=== PATIENT | female | born 1930 | race Caucasian/White ===

== ENCOUNTER 2017-05-10 17:14 | Inpatient (IN) | payer OTHER ==
[~2017-05-10] VITALS: Ht 162.6 cm; Wt 77.2 kg
[2017-05-10] MEDS ORDERED: NIFEDICAL XL30 MG PO (18:00)
[2017-05-10] MEDS ORDERED: PAROXETINE40 M1 PO (18:01)
[2017-05-10] MEDS ORDERED: CLONAZEPAM1 MG PO (18:02)
[2017-05-10] MEDS ORDERED: PROTONIX40 MG PO (18:02)
[2017-05-10] MEDS ORDERED: DONEPEZIL HCL10 MG PO (18:03)
[2017-05-10] MEDS ORDERED: LEVOTHYROXINE0.1 M2 PO (18:03)
[2017-05-10] MEDS ORDERED: LOSARTAN POTASS50 M1 PO (18:03)
[2017-05-10] MEDS ORDERED: FENOFIBRATE160 M1 PO (18:03)
[2017-05-10] MEDS ORDERED: CYCLOBENZAPRINE5 MG PO (18:03)
[2017-05-10] MEDS ORDERED: NORCO1 TA2 PO (18:04)
[2017-05-10] MEDS ORDERED: FERROUS SULFAT325 M2 PO (18:04)
[2017-05-10 18:34] LABS: BASOPHIL % 0.4 % (0-2); PLATELET COUNT 388 x10^3mcL (130-400); RED CELL DISTRIBUTION WIDTH 14.3 % (11.5-14.5)
[2017-05-10 18:40] LABS: CALCIUM 9.2 mg/dL (8.5-10.1); CARBON DIOXIDE 21.3 mmol/L (21-32); CHLORIDE SERUM 107 mmol/L (98-107); CREATININE SERUM 1.2 mg/dL (0.6-1.0); GLUCOSE SERUM 111 mg/dL (74-106); POTASSIUM SERUM 3.9 mmol/L (3.5-5.1); SODIUM SERUM 141 mmol/L (136-145)
[2017-05-10 18:44] LABS: ALBUMIN 3.8 g/dL (3.4-5.0); ALKALINE PHOSPHATASE 37 U/L (46-116); ALT/SGPT 30 U/L (14-59); AST/SGOT 21 U/L (15-37); BILIRUBIN TOTAL 0.58 mg/dL (0.20-1.00); TOTAL PROTEIN, SERUM 7.4 g/dL (6.4-8.2)
[2017-05-10 19:16] LABS: UA SPECIFIC GRAVITY <=1.005 (1.005-1.035); microscopic required? YES; urine erythrocyte NEGATIVE (NEGATIVE)
[2017-05-10 19:52] VITALS: BP 140/60
[2017-05-10 20:10] LABS: MAGNESIUM 2.1 mg/dL (1.8-2.4); PHOSPHOROUS 2.6 mg/dL (2.5-4.9)
[2017-05-10 20:19] LABS: CHOLESTEROL/HDL RATIO 2.4
[2017-05-10 20:25] LABS: FREE T4 1.47 ng/dL (0.76-1.46); FREE THYROXINE INDEX 4.3 ug/dL (1.4-4.5)
[2017-05-10 21:04] VITALS: BP 140/60
[2017-05-11 03:24] LABS: T3 TOTAL 0.49 ng/mL
[2017-05-11 05:05] VITALS: BP 119/54
[2017-05-11 06:48] LABS: BASOPHIL % 0.6 % (0-2); PLATELET COUNT 319 x10^3mcL (130-400); RED CELL DISTRIBUTION WIDTH 14.3 % (11.5-14.5)
[2017-05-11 07:07] LABS: CALCIUM 8.2 mg/dL (8.5-10.1); CARBON DIOXIDE 23.3 mmol/L (21-32); CHLORIDE SERUM 109 mmol/L (98-107); CREATININE SERUM 1.2 mg/dL (0.6-1.0); GLUCOSE SERUM 104 mg/dL (74-106); MAGNESIUM 2.1 mg/dL (1.8-2.4); PHOSPHOROUS 3.1 mg/dL (2.5-4.9); POTASSIUM SERUM 4.1 mmol/L (3.5-5.1); SODIUM SERUM 142 mmol/L (136-145)
[2017-05-11 08:59] VITALS: BP 144/64
[2017-05-11 13:50] VITALS: BP 136/52
[2017-05-11 18:00] VITALS: BP 125/46
[2017-05-11 20:55] VITALS: BP 130/55
[2017-05-11 21:29] VITALS: BP 112/64
[2017-05-12 05:55] VITALS: BP 116/44
[2017-05-12 07:39] LABS: CALCIUM 8.4 mg/dL (8.5-10.1); CARBON DIOXIDE 22.9 mmol/L (21-32); CHLORIDE SERUM 113 mmol/L (98-107); CREATININE SERUM 1.1 mg/dL (0.6-1.0); GLUCOSE SERUM 101 mg/dL (74-106); SODIUM SERUM 144 mmol/L (136-145)
[2017-05-12 07:51] LABS: BASOPHIL % 0.7 % (0-2); PLATELET COUNT 310 x10^3mcL (130-400); RED CELL DISTRIBUTION WIDTH 14.1 % (11.5-14.5)
[2017-05-12] MEDS ORDERED: FLA500 PO (09:30)
[2017-05-12] MEDS ORDERED: LEVAQUIN750 MG PO (09:30)
[2017-05-12] MEDS ORDERED: BD LACTINEX1.4 MG PO (09:30)
[2017-05-12] MEDS ORDERED: COLACE100 MG PO (09:46)
[2017-05-12] MEDS ORDERED: APAP/HYDROCODON1 T13 PO (09:46)
[2017-05-12 09:48] VITALS: BP 116/44
[2017-05-12 09:59] VITALS: BP 139/61
== END 2017-05-12 14:31 | disposition home or self-care (01) | DRG 392 ==
LOC: ED 17:14 → DU 18:50
PROVIDERS: Emergency Medicine; Family Medicine Sports Medicine
DX: K57.32 Diverticulitis of large intestine without perforation or abscess without bleeding (principal); N39.0 Urinary tract infection, site not specified; I10 Essential (primary) hypertension; R73.03 Prediabetes; E83.51 Hypocalcemia; E78.5 Hyperlipidemia, unspecified; E03.9 Hypothyroidism, unspecified; E66.3 Overweight; Z68.29 Body mass index [BMI] 29.0-29.9, adult; Z98.1 Arthrodesis status; Z79.891 Long term (current) use of opiate analgesic
CPT/HCPCS: 83880; 84439; J0696; J1885; J1956; J2405; J3010; J3490; J7030; Q0092

== ENCOUNTER 2019-05-15 12:12 | Emergency (ER) | payer OTHER ==
[~2019-05-15] VITALS: Ht 147.3 cm; Wt 68.2 kg
[~2019-05-15 12:12] MED LIST: APAP/HYDROCODON1 T13 PO; BD LACTINEX1.4 MG PO; CLONAZEPAM1 MG PO; COLACE100 MG PO; CYCLOBENZAPRINE5 MG PO; DONEPEZIL HCL10 MG PO; FENOFIBRATE160 M1 PO; FERROUS SULFAT325 M2 PO; FLA500 PO; LEVAQUIN750 MG PO; LEVOTHYROXINE0.1 M2 PO; LOSARTAN POTASS50 M1 PO; NIFEDICAL XL30 MG PO; NORCO1 TA2 PO; PAROXETINE40 M1 PO; PROTONIX40 MG PO
[2019-05-15 13:03] VITALS: Ht 147.3 cm; Wt 68.2 kg
[2019-05-15 15:43] VITALS: BP 116/61
== END 2019-05-15 15:43 | disposition home or self-care (01) ==
LOC: ED 12:12
DX: J18.9 Pneumonia, unspecified organism (principal); I10 Essential (primary) hypertension; Z90.49 Acquired absence of other specified parts of digestive tract; Z90.89 Acquired absence of other organs; Z90.710 Acquired absence of both cervix and uterus
CPT/HCPCS: J1885

== ENCOUNTER 2019-06-14 17:48 | Emergency (ER) | payer OTHER ==
[~2019-06-14] VITALS: Ht 162.6 cm; Wt 72.6 kg
[2019-06-14 18:00] VITALS: Ht 162.6 cm; Wt 72.6 kg
[2019-06-14 21:38] LABS: PLATELET COUNT 416 x10^3mcL (130-400)
[2019-06-14 21:53] LABS: BAND NEUTROPHIL 1 % (0-10); BASOPHIL 1 % (0-2); MONOCYTE 5 % (0-7); PLATELET MORPHOLOGY PLATELETS NORMAL; SEGMENTED NEUTROPHILS 40 % (37-75); rbc morphology (normal/abnorm) NORMAL (NORMAL)
[2019-06-14 21:56] LABS: CALCIUM 10.4 mg/dL (8.5-10.1); CARBON DIOXIDE 22.5 mmol/L (21-32); CHLORIDE SERUM 108 mmol/L (98-107); CREATININE SERUM 1.1 mg/dL (0.6-1.0); GLUCOSE SERUM 101 mg/dL (74-106); POTASSIUM SERUM 4.3 mmol/L (3.5-5.1); SODIUM SERUM 141 mmol/L (136-145)
[2019-06-15 00:29] VITALS: BP 143/89
== END 2019-06-15 00:29 | disposition home or self-care (01) ==
LOC: ED 17:48
PROVIDERS: Emergency Medicine
DX: I82.402 Acute embolism and thrombosis of unspecified deep veins of left lower extremity (principal); I10 Essential (primary) hypertension; E78.00 Pure hypercholesterolemia, unspecified; Z90.49 Acquired absence of other specified parts of digestive tract; Z90.89 Acquired absence of other organs
CPT/HCPCS: 36415; Q0092

== ENCOUNTER 2019-11-16 07:27 | Observation (INO) | payer OTHER ==
[~2019-11-16] VITALS: Ht 162.6 cm; Wt 66.9 kg
[2019-11-16 07:40] VITALS: Ht 162.6 cm; Wt 66.9 kg
--- NOTE | 2019-11-16 08:00 | NUR ---
PT BIB SELF C/O NAUSEA AND DECREASED APPETITE X2 WEEKS. DENIES ANY NAUSE. PT IS AAOX4, NO DISTRESS NOTED, RESP E/U SKIN INTACT PINK WARM AND DRY. PT GOWNED AND PLACED ON FULL CM, NSR, NOTED. AWAITING MSE BY .
[2019-11-16 08:34] LABS: microscopic required? NO
--- NOTE | 2019-11-16 08:46 | NUR ---
PT RETURNED TO ER FLOOR VIA GURNEY FORM CT. NO DISTRESS NOTED
[2019-11-16 08:50] LABS: BASOPHIL % 0.9 % (0-2)
[2019-11-16 08:55] LABS: UA SPECIFIC GRAVITY 1.025 (1.005-1.035); urine erythrocyte NEGATIVE (NEGATIVE)
[2019-11-16 08:56] LABS: PLATELET COUNT 482 x10^3mcL (130-400)
--- NOTE | 2019-11-16 08:58 | NUR ---
XRAY AT THE BEDSIDE.
[2019-11-16 09:08] LABS: CALCIUM 8.8 mg/dL (8.5-10.1); CARBON DIOXIDE 21.8 mmol/L (21-32); CHLORIDE SERUM 106 mmol/L (98-107); CREATININE SERUM 1.2 mg/dL (0.6-1.0); GLUCOSE SERUM 117 mg/dL (74-106); POTASSIUM SERUM 4.1 mmol/L (3.5-5.1); SODIUM SERUM 140 mmol/L (136-145)
[2019-11-16 09:13] LABS: ALBUMIN 3.6 g/dL (3.4-5.0); ALKALINE PHOSPHATASE 36 U/L (46-116); ALT/SGPT 20 U/L (14-59); AST/SGOT 16 U/L (15-37); BILIRUBIN TOTAL 0.4 mg/dL (0.20-1.00); LIPASE 82 IU/L (73-393)
--- NOTE | 2019-11-16 09:54 | NUR ---
DR DICKERSON AT THE BEDSIDE DISCUSSING PLAN OF CARE
--- NOTE | 2019-11-16 10:20 | NUR ---
PT C/O GENERALIZED HEADACHE AND REPORTED "I STILL FEEL NAUSEA." MADE AWARE.
[2019-11-16] MEDS ORDERED: TRIGLIDE160 M1 PO (10:33)
[2019-11-16] MEDS ORDERED: LEVO-T75 MCG PO (10:33)
[2019-11-16] MEDS ORDERED: PANTOPRAZOLE SO40 M1 PO (10:33)
[2019-11-16] MEDS ORDERED: ARICEPT10 MG PO (10:34)
[2019-11-16] MEDS ORDERED: HORIZANT300 MG PO (10:36)
[2019-11-16] MEDS ORDERED: AMBIEN5 MG PO (10:36)
[2019-11-16] MEDS ORDERED: MIRAPEX0.25 MG PO (10:37)
--- NOTE | 2019-11-16 11:30 | NUR ---
PT NOTED SLEEPING, EASILY AROUSABLE, NO DISTRESS NOTED, RESP E/U. WILL CONT TO MONITOR.
--- NOTE | 2019-11-16 12:00 | NUR ---
PT AWAITING ACCEPTANCE FORM INSURANCE FOR [facility]. PT AWARE.
--- NOTE | 2019-11-16 12:20 | NUR ---
PT DENIES ANY PAIN OR NAUSEA AT THIS TIME. MD AWARE.
--- NOTE | 2019-11-16 12:23 | NUR ---
PT ASKED FOR SOME FOOD, OK PER TO GIVE HER A SANDWICH. GAVE PT TUNA SANDWICH AND SOME WATER TO DRINK.
--- NOTE | 2019-11-16 14:30 | NUR ---
REPORT GIVEN TO MARCIE ALMAGUER ON [facility] WHO WILL ASSUME FURTHER CARE OF THIS PATIENT.
[2019-11-16 15:30] VITALS: BP 121/59
--- NOTE | 2019-11-16 15:42 | NUR ---
ARRIVED FROM ED AT 1445. AAO TIMES 4. MED SURG PATIENT. LUNGS CTA. NO SOB. O2 SAT ON RA 97%. BS'S ACTIVE TIMES 4. BLANCO, USES CANE TO AMBULATE. IV SITE RFA CDI. COOPERATIVE. NO C/O PAIN.
[2019-11-16 17:52] VITALS: BP 123/49
--- NOTE | 2019-11-16 18:12 | NUR ---
AAO TIMES 4. MED SURG PATIENT. C/O HEADACHE, GAVE NORCO PO AT 1800. C/O NAUSEA, GAVE ZOFRAN 4 MG IVP. SHE WAS C/O CONSTIPATION, I NOTIFIED DR CORTEZ OF THE CONSTIPATION, AND HE HAD ME ORDER COLACE BID. SHE WAS VERY CONCERNED SHE GETS AMBIEN AT NIGHT OR SHE WONT SLEEP, DR CORTEZ ORDERED THAT TOO. IV SITE RFA CDI. COOPERATIVE.
--- NOTE | 2019-11-16 19:30 | NUR ---
RECEIVED PATIENT FROM DAY NURSE. MED SURG PATIENT. PATIENT RESTING IN BED, A/O X4, VERBALLY RESPONSIVE. BREATHING E/U, ON ROOM AIR, DENIES SOB. ABD SOFT AND FLAT. NO EDEMA NOTED. IV RFA, INTACT AND INFUSING NS @ 100 ML/HR. DENIES PAIN @ THIS TIME. CURRENTLY ON CLEAR LIQUIDS DIET, TO BE NPO AFTER MIDNIGHT IN PREPARATION FOR EGD, PATIENT VERBALIZED UNDERSTANDING. CALL LIGHT WITHIN REACH, BED IN LOWEST POSITION. WILL CONTINUE TO MONITOR. DENIES PAIN @ THIS TIME.
--- NOTE | 2019-11-16 20:40 | NUR ---
PATIENT IS SCHEDULED FOR EGD TOMORROW AND HAS CURRENTLY HAS NO PT/PTT NOR ORDERS FOR PT/PTT. PAGED DR. GROSSMAN AND WAITING FOR CALL BACK.
--- NOTE | 2019-11-16 20:45 | NUR ---
DR. GROSSMAN CALLED BACK AND ORDERED FOR PT/PTT.
[2019-11-16 21:40] VITALS: BP 114/57
--- NOTE | 2019-11-17 00:10 | NUR ---
PATIENT RESTING IN BED WITH EYES CLOSED. EVEN CHEST RISE AND FALL. SHOWS NO SIGN OF PAIN OR DISTRESS. CALL LIGHT WITHIN REACH, BED IN LOWEST POSITION. WILL CONTINUE TO MONITOR.
[2019-11-17 06:07] VITALS: BP 111/57
--- NOTE | 2019-11-17 07:15 | NUR ---
PATIENT CALMLY RESTING IN BED, BREATHING E/U ON ROOM AIR, DENIES PAIN AND NAUSEA @ THIS TIME. PATIENT IS SCHEDULED FOR EGD PROCEDURE @ 0800 THIS MORNING, PATIENT HAS BEEN NPO SINCE MIDNIGHT, SURGERY CHECKLIST DONE, BOTH THE ANESTHESIA AND SURGERY INFORMED CONSENTS HAVE BEEN SIGNED AND PLACED IN PATIENT'S CHART, GAVE REPORT TO GI LAB. NO SIGNFICIANT CHANGES DURING SHIFT, ALL NEEDS MET, SAFETY PRECAUTIONS MAINTAINED THROUGHOUT SHIFT, CALL LIGHT WITHIN REACH, WILL ENDORSE TO DAY NURSE.
--- NOTE | 2019-11-17 07:20 | NUR ---
PT RECEIVED FROM MICROELECTRONICS TECHNICIAN RN. AOX4 ABLE TO MAKE NEEDS KNOWN. LUNGS CTA, DENIES SOB/COUGH, RESP E/U, ON RA. ABODMEN SOFT/ROUND, DENIES NVD, CURRENTLY NPO FOR EGD. VOIDS FREELY. AMBULATES WITH CANE. SKIN INTACT, DENIES PAIN AT THE TIME. IV TO RFA AT 80 ML/HR. CDI. CALL LIGHT IN REACH, WILL CONTINUE TO MONITOR.
[2019-11-17 07:27] LABS: BASOPHIL % 3.1 % (0-2); PLATELET COUNT 436 x10^3mcL (130-400)
[2019-11-17 07:31] LABS: CALCIUM 8.6 mg/dL (8.5-10.1); CARBON DIOXIDE 22.5 mmol/L (21-32); CHLORIDE SERUM 108 mmol/L (98-107); CREATININE SERUM 1.3 mg/dL (0.6-1.0); GLUCOSE SERUM 97 mg/dL (74-106); SODIUM SERUM 142 mmol/L (136-145)
[2019-11-17 08:10] VITALS: BP 133/52
[2019-11-17 12:02] VITALS: BP 142/61
[2019-11-17 17:36] VITALS: BP 142/53
--- NOTE | 2019-11-17 19:20 | NUR ---
RECEIVED REPORT FROM MARIVEL ALMAGUER. PT IS AAOX4 AND DENIES WYLIE/DIZZINESS. PT IS MED-SURG AND DENIES CP/PRESSURE. PT PULSES PALPABLE AND CAP REFILL <3 SEC. PT LUNG SOUNDS CTA ON RA. PT DENIES SOB OR RESP DISTRESS. PT ABD SOFT/ROUND WITH ACTIVE BS X4. PT DENIES N/V/C/D. PT VOIDS FREELY WITH BRP. PT HAS GENERALIZED WEAKNESS, BUT IS AMBULATORY. PT SKIN INTACT. PT IV PATENT AND INTACT. NS INFUSING WELL AT 80ML/HR. ALL NEEDS MET. CALL LIGHT WITHIN REACH. BED IN LOWEST POSITION. SIDE RAILS X2 UP. WILL CONTINUE TO MONITOR.
[2019-11-17 21:10] VITALS: BP 137/49
--- NOTE | 2019-11-17 21:20 | NUR ---
XR SBFT RESULTS CAME BACK. IMPRESSION SHOWED NORMAL SMALL BOWEL TRANSIT TIME. NEGATIVE BOWEL OBSTRUCTION. MADE DR. RAMEY AWARE. PT DISCHARGE ORDERS IMPLEMENTED. PER PT, SHE WILL NOT BE ABLE TO BE GO HOME TONIGHT D/T NO RIDE. HOWEVER, SHE WILL HAVE TRANSPORT TOMORROW AT 0800. DR. RAMEY MADE AWARE. NO NEW ORDERS GIVEN. WILL CONTINUE TO MONITOR.
--- NOTE | 2019-11-17 22:41 | NUR ---
PT C/O INSOMNIA AND IS ASKING FOR AMBIEN. PER EMAR, ADMINISTERED AMBIEN PO. WILL CONTINUE TO MONITOR.
--- NOTE | 2019-11-18 03:10 | NUR ---
PT RESTING COMFORTABLY IN BED WITH EYES CLOSED, EASILY AROUSABLE. NO ACUTE DISTRESS NOTED. PT BREATHING E/U ON RA. ALL NEEDS MET. CALL LIGHT WITHIN REACH. WILL CONTINUE TO MONITOR.
[2019-11-18 05:14] VITALS: BP 113/34
--- NOTE | 2019-11-18 06:26 | NUR ---
PT RESTED COMFORTABLY WITH EYES CLOSED DURING THE NIGHT, EASILY AROUSABLE. NO ACUTE DISTRESS NOTED. PT BREATHING E/U. PT IV PATENT AND INTACT. ALL NEEDS MET. WILL ENDORSE TO DAY SHIFT NURSE.
[2019-11-18 06:34] VITALS: BP 113/34
[2019-11-18 07:05] LABS: BASOPHIL % 1.1 % (0-2); RED CELL DISTRIBUTION WIDTH 13.9 % (11.5-14.5)
--- NOTE | 2019-11-18 07:15 | NUR ---
SEEN AOX4, MEDSURG, PALPABLE PULSES, NO EDEMA, CTA ON BLF, +BS, VOIDS WITH NO DYSURIA, GENERALIZED WEAKNESS, AMBULATORY WITH CANE AT BEDSIDE, SKIN DRY AND INTACT, NO PAIN AT THIS TIME, IV INTACT AND PATENT, NO REDNESS OR SWELLING, CALL LIGHT WITHIN REACH, BED AT LOWEST POSITION, SIDE RAILS UP
[2019-11-18 07:21] LABS: ALKALINE PHOSPHATASE 30 U/L (46-116); ALT/SGPT 16 U/L (14-59); AST/SGOT 18 U/L (15-37); BILIRUBIN TOTAL 0.4 mg/dL (0.20-1.00); CALCIUM 8.3 mg/dL (8.5-10.1); CARBON DIOXIDE 22.2 mmol/L (21-32); CHLORIDE SERUM 109 mmol/L (98-107); CREATININE SERUM 1.1 mg/dL (0.6-1.0); GLUCOSE SERUM 84 mg/dL (74-106); MAGNESIUM 1.9 mg/dL (1.8-2.4); POTASSIUM SERUM 4.1 mmol/L (3.5-5.1); SODIUM SERUM 143 mmol/L (136-145)
[2019-11-18 08:14] LABS: PLATELET COUNT 427 x10^3mcL (130-400)
--- NOTE | 2019-11-18 08:34 | NUR ---
SPOKE WITH DR SIEGEL REGARDING NORMAL RESULTS FOR SBFT. PER DR SIEGEL, PATIENT MAY DISCHARGE FROM HIS STANDPOINT.
[2019-11-18 09:03] VITALS: BP 148/56
--- NOTE | 2019-11-18 09:12 | NUR ---
ZOFRAN IVP GIVEN FOR NAUSEA. PATIENT COMPLAINED OF MILD NAUSEA . PER PATIENT SHE FEELS A LITTLE FLUTTERING IN HER STOMACH BUT NO PAIN. PATIENT TOOK 1 CUP OF SOUP.
[2019-11-18 09:24] VITALS: BP 148/56
--- NOTE | 2019-11-18 10:20 | NUR ---
DISCHARGE INSTRUCTIONS GIVEN. INSTRUCTED TO FF UP WITH PCP, TO TAKE PRESCRIBE MEDICATIONS AND TO BRING BELONGINGS WITH PATIENT.
--- NOTE | 2019-11-18 10:24 | NUR ---
IV REMOVED. CATHETER INTACT. NO REDNESS OR SWELLING.
--- NOTE | 2019-11-18 10:35 | NUR ---
PATIENT DISCHARGED PER WHEELCHAIR.ACCOMPANIED BY SELF.
== END 2019-11-18 10:30 | disposition home or self-care (01) ==
LOC: ED 07:27 → MU 10:58
PROVIDERS: Emergency Medicine; ADMIT Hospitalist; ATTEND Hospitalist
DX: R11.2 Nausea with vomiting, unspecified (principal); E86.0 Dehydration; I10 Essential (primary) hypertension; E03.9 Hypothyroidism, unspecified; R63.4 Abnormal weight loss; N28.89 Other specified disorders of kidney and ureter
CPT/HCPCS: 43235; 83880; G0378; J0696; J1200; J1610; J1885; J2250; J2310; J2405; J3010; J3490; J7030; J7060; Q0092; Q9967

== ENCOUNTER 2020-01-22 15:38 | Inpatient (IN) | payer OTHER ==
[~2020-01-22] VITALS: Ht 162.6 cm; Wt 65.8 kg
[~2020-01-22 15:38] MED LIST changes: +AMBIEN5 MG PO; +ARICEPT10 MG PO; +HORIZANT300 MG PO; +LEVO-T75 MCG PO; +MIRAPEX0.25 MG PO; +PANTOPRAZOLE SO40 M1 PO; +TRIGLIDE160 M1 PO
[2020-01-22 15:42] VITALS: Ht 162.6 cm; Wt 65.8 kg
[2020-01-22 17:03] LABS: microscopic required? YES; urine erythrocyte NEGATIVE (NEGATIVE)
[2020-01-22 17:06] LABS: BASOPHIL % 0.4 % (0-2); RED CELL DISTRIBUTION WIDTH 13.4 % (11.5-14.5)
[2020-01-22 17:10] LABS: PLATELET COUNT 440 x10^3mcL (130-400)
[2020-01-22 17:19] LABS: CALCIUM 9.4 mg/dL (8.5-10.1); CARBON DIOXIDE 26.5 mmol/L (21-32); CHLORIDE SERUM 103 mmol/L (98-107); CREATININE SERUM 1.7 mg/dL (0.6-1.0); GLUCOSE SERUM 98 mg/dL (74-106); POTASSIUM SERUM 4.2 mmol/L (3.5-5.1); SODIUM SERUM 138 mmol/L (136-145)
[2020-01-22 17:23] LABS: ALBUMIN 3.6 g/dL (3.4-5.0); ALKALINE PHOSPHATASE 35 U/L (46-116); ALT/SGPT 22 U/L (14-59); AST/SGOT 19 U/L (15-37); BILIRUBIN TOTAL 0.3 mg/dL (0.20-1.00); CHOLESTEROL 144 mg/dL (<200); CHOLESTEROL/HDL RATIO 2.6; HDL CHOLESTEROL 56 mg/dL (40-60); LIPASE 89 IU/L (73-393); TOTAL PROTEIN, SERUM 7.1 g/dL (6.4-8.2); TRIGLYCERIDES 90 mg/dL (<150)
[2020-01-22 17:40] LABS: FREE T4 1.27 ng/dL (0.76-1.46); T4(THYROXINE) 11.5 ug/dL (4.7-13.3)
[2020-01-22 21:21] VITALS: BP 123/48
[2020-01-23 05:52] VITALS: BP 115/45
[2020-01-23 07:06] LABS: BASOPHIL % 0.1 % (0-2); RED CELL DISTRIBUTION WIDTH 13.9 % (11.5-14.5)
[2020-01-23 07:37] LABS: ALKALINE PHOSPHATASE 31 U/L (46-116); ALT/SGPT 21 U/L (14-59); AST/SGOT 23 U/L (15-37); BILIRUBIN TOTAL 0.4 mg/dL (0.20-1.00); CALCIUM 8.9 mg/dL (8.5-10.1); CARBON DIOXIDE 24.4 mmol/L (21-32); CHLORIDE SERUM 106 mmol/L (98-107); CREATININE SERUM 1.5 mg/dL (0.6-1.0); GLUCOSE SERUM 114 mg/dL (74-106); POTASSIUM SERUM 4.7 mmol/L (3.5-5.1); SODIUM SERUM 138 mmol/L (136-145)
[2020-01-23 07:52] LABS: PLATELET COUNT 413 x10^3mcL (130-400)
[2020-01-23 08:53] VITALS: BP 114/50
[2020-01-23 13:00] VITALS: BP 109/43
[2020-01-23 16:22] VITALS: BP 113/40
[2020-01-23 20:07] VITALS: BP 116/47
[2020-01-24 05:31] VITALS: BP 110/46
[2020-01-24 07:58] LABS: ALKALINE PHOSPHATASE 35 U/L (46-116); ALT/SGPT 19 U/L (14-59); AST/SGOT 20 U/L (15-37); BILIRUBIN TOTAL 0.51 mg/dL (0.20-1.00); CALCIUM 8.1 mg/dL (8.5-10.1); CARBON DIOXIDE 21.7 mmol/L (21-32); CHLORIDE SERUM 104 mmol/L (98-107); CREATININE SERUM 1.5 mg/dL (0.6-1.0); GLUCOSE SERUM 87 mg/dL (74-106); POTASSIUM SERUM 3.8 mmol/L (3.5-5.1); SODIUM SERUM 137 mmol/L (136-145); TOTAL PROTEIN, SERUM 6.3 g/dL (6.4-8.2)
[2020-01-24 08:01] LABS: BASOPHIL % 0.5 % (0-2); PLATELET COUNT 344 x10^3mcL (130-400); RED CELL DISTRIBUTION WIDTH 14.1 % (11.5-14.5)
[2020-01-24 08:38] VITALS: BP 121/45
[2020-01-24 12:25] VITALS: BP 112/41
[2020-01-24 17:15] VITALS: BP 116/83
[2020-01-24 22:37] VITALS: BP 122/49
[2020-01-24 22:40] VITALS: BP 114/58
[2020-01-25] VITALS: BP 116/68
[2020-01-25 05:45] VITALS: BP 109/40
[2020-01-25 07:28] LABS: BASOPHIL % 0.6 % (0-2); PLATELET COUNT 380 x10^3mcL (130-400); RED CELL DISTRIBUTION WIDTH 13.3 % (11.5-14.5)
[2020-01-25 07:51] LABS: ALKALINE PHOSPHATASE 26 U/L (46-116); ALT/SGPT 16 U/L (14-59); AST/SGOT 18 U/L (15-37); BILIRUBIN TOTAL 0.4 mg/dL (0.20-1.00); CALCIUM 8.3 mg/dL (8.5-10.1); CHLORIDE SERUM 106 mmol/L (98-107); CREATININE SERUM 1.4 mg/dL (0.6-1.0); GLUCOSE SERUM 107 mg/dL (74-106); POTASSIUM SERUM 3.4 mmol/L (3.5-5.1); SODIUM SERUM 137 mmol/L (136-145)
[2020-01-25 07:54] LABS: ALBUMIN 2.6 g/dL (3.4-5.0); TOTAL PROTEIN, SERUM 5.6 g/dL (6.4-8.2)
[2020-01-25 08:23] VITALS: BP 145/73
[2020-01-25 13:17] VITALS: BP 145/58
[2020-01-25 14:33] LABS: T3 TOTAL 0.67 ng/mL
[2020-01-25 17:24] VITALS: BP 138/57
[2020-01-25 17:43] VITALS: BP 138/57
== END 2020-01-25 19:24 | disposition home or self-care (01) | DRG 389 ==
LOC: ED 15:38 → DU 19:27 → MU 19:27 → DU 01-23 00:01
PROVIDERS: Specialist; ADMIT Internal Medicine; ATTEND Internal Medicine
DX: K56.609 Unspecified intestinal obstruction, unspecified as to partial versus complete obstruction (principal); N39.0 Urinary tract infection, site not specified; I10 Essential (primary) hypertension; E03.9 Hypothyroidism, unspecified; F32.9 Major depressive disorder, single episode, unspecified; K20.9 Esophagitis, unspecified; K59.00 Constipation, unspecified; E78.00 Pure hypercholesterolemia, unspecified; Z79.899 Other long term (current) drug therapy; Z90.710 Acquired absence of both cervix and uterus; Z90.49 Acquired absence of other specified parts of digestive tract; Z79.891 Long term (current) use of opiate analgesic; Z79.01 Long term (current) use of anticoagulants; Z20.828 Contact with and (suspected) exposure to other viral communicable diseases
CPT/HCPCS: 83880; 84439; A9698; C9113; G0378; J0696; J1644; J1885; J2270; J2405; J2543; J3010; J3490; J7030; J7042; J7050; J7060; Q0092; Q9967

== ENCOUNTER 2020-03-20 19:28 | Emergency (ER) | payer OTHER ==
[~2020-03-20] VITALS: Ht 162.6 cm; Wt 73.9 kg
[2020-03-20 19:44] VITALS: Ht 162.6 cm; Wt 73.9 kg
[2020-03-20 20:20] LABS: BASOPHIL % 0.7 % (0-2); RED CELL DISTRIBUTION WIDTH 14.1 % (11.5-14.5)
[2020-03-20 20:24] LABS: PLATELET COUNT 431 x10^3mcL (130-400)
[2020-03-20 20:32] LABS: CALCIUM 9.4 mg/dL (8.5-10.1); CARBON DIOXIDE 19.1 mmol/L (21-32); CHLORIDE SERUM 103 mmol/L (98-107); CREATININE SERUM 1.4 mg/dL (0.6-1.0); GLUCOSE SERUM 144 mg/dL (74-106); POTASSIUM SERUM 3.9 mmol/L (3.5-5.1); SODIUM SERUM 137 mmol/L (136-145)
[2020-03-20 20:36] LABS: ALKALINE PHOSPHATASE 44 U/L (46-116); ALT/SGPT 122 U/L (14-59); AST/SGOT 120 U/L (15-37); BILIRUBIN TOTAL 0.47 mg/dL (0.20-1.00); LIPASE 123 IU/L (73-393); TOTAL PROTEIN, SERUM 7.2 g/dL (6.4-8.2)
[2020-03-20 20:37] LABS: ALBUMIN 3.3 g/dL (3.4-5.0)
[2020-03-20 22:36] LABS: UA SPECIFIC GRAVITY <=1.005 (1.005-1.035); microscopic required? YES; urine erythrocyte TRACE (NEGATIVE)
[2020-03-20 22:54] VITALS: BP 121/49
== END 2020-03-20 22:54 | disposition home or self-care (01) ==
LOC: ED 19:28
PROVIDERS: Emergency Medicine
DX: K57.92 Diverticulitis of intestine, part unspecified, without perforation or abscess without bleeding (principal); N39.0 Urinary tract infection, site not specified; I10 Essential (primary) hypertension; E78.00 Pure hypercholesterolemia, unspecified; Z90.49 Acquired absence of other specified parts of digestive tract; Z90.89 Acquired absence of other organs; Z90.710 Acquired absence of both cervix and uterus
CPT/HCPCS: J2270; J2405; Q9967